=== PATIENT | female | born 1965 | race Caucasian/White ===

== ENCOUNTER 2022-06-30 02:00 | Day surgery (SDC) | payer BC, SELFPAY ==
[2022-06-18 09:03] VITALS: BMI 39.5
[2022-06-30 08:37] VITALS: BP 147/91; PULSE 98; RESP 18; TEMP 36.1; O2SAT 99; BMI 45.9
[2022-06-30] MEDS: LACTATED RINGERS 1,000 ML 150 ML IV CONT (08:46)
--- NOTE | 2022-06-30 09:19 | PM.HPGS ---
History of Present Illness History of Present Illness Consent: Risks, benefits, and alternatives have been discussed and questions answered. Patient agrees to proceed with procedure. Chief complaint: neoplasm screening Narrative: Kyung Wallace is a 56 year old female here for colonoscopy, 5 years ago had polyp Review of Systems Constitutional: Constitutional: Denies headache(s) and Denies weakness Eyes: Eyes: Denies blurry vision ENT: Reports Normal hearing present, Denies headache(s) and Denies neck pain Cardiovascular: Cardiovascular: Denies chest pain and Denies dyspnea Respiratory: Respiratory: Denies dyspnea Gastrointestinal: Gastrointestinal: Reports no additional gastrointestinal complaints Genitourinary: Genitourinary: Denies dysuria Musculoskeletal: Musculoskeletal: Denies neck pain Integumentary/Breasts: Skin/Breast: Denies dry skin Neurologic: Reports Normal hearing present, Denies headache(s) and Denies weakness Psychiatric: Psychiatric: Denies anxiety Endocrine: Endocrine: Denies change in body appearance Hematologic/Lymphatic: Hematologic/Lymphatic: Denies easy bleeding Allergic/Immunologic: Allergic/Immunologic: Denies urticaria PMFSH Past Medical History Medical History (Updated 06/30/22 @ 09:19 by Harman Garcias MD) Colon polyp Social History Social History Years smoked: 32 Smoking status: Current every day smoker Tobacco type: cigarettes Substance use type: does not use Living arrangements: with family Spiritual care concerns: No Meds Home Medications and Allergies Home Medications Medication Instructions Recorded Confirmed Type alprazolam 0.25 mg tablet 0.25 mg PO BID PRN Anxiety 06/18/22 06/18/22 History atenolol 50 mg tablet 50 mg PO DAILY 06/18/22 06/18/22 History escitalopram oxalate 20 mg tablet 20 mg PO DAILY 06/18/22 06/18/22 History hydrochlorothiazide 25 mg tablet 25 mg PO BID 06/18/22 06/18/22 History trazodone 50 mg tablet 50 mg PO HS 06/18/22 06/18/22 History venlafaxine 75 mg capsule,extended 75 mg PO DAILY 06/18/22 06/18/22 History release 24 hr Allergies Allergy/AdvReac Type Severity Reaction Status Date / Time Penicillins Allergy Other Verified 06/30/22 08:36 Vital Signs Vital Signs - 24 hr 06/30/22 08:37 Temperature 97 F L Pulse Rate 98 Respiratory Rate 18 Blood Pressure 147/91 H Pulse Oximetry 99 Oxygen Delivery Room Air Exam Const: General: comfortable and no acute distress HENMT: Face/Nose/Sinus: Normal nares present Eyes: General: appearance normal, both eyes and all related structures Neck: Neck: no JVD Resp: Auscultation: clear to auscultation bilaterally Cardio: Rate: regular rate Rhythm: regular rhythm GI: Inspection: non-distended GI Palp: Yes Soft to palpation Skin: General skin exam: normal color Neuro: General: gait normal Speech: normal speech Extrem: General: normal to inspection Psych: Mental Status: mental status grossly normal Assessment and Plan Assessment and plan (1) Colon polyp: Code(s): K63.5 - Polyp of colon Status: Acute Assessment and Plan: colonoscopy
--- NOTE | 2022-06-30 09:24 | WPDANESEPPF ---
Anes - Initial Pre Proc Eval Procedure: Operation Date: 06/30/22 09:45 Proposed Procedures p Screening Colonoscopy - Harman Garcias MD Date/Time: 06/30/22 09:24 Surgeon: Harman Garcias MD Pre Op Diagnosis: neoplasm screening Patient Data Age: 56 Gender: F Height: 1.78 m Weight: 145.2 kg Last Vital Signs Temp 97 F L 06/30/22 08:37 Pulse 98 06/30/22 08:37 Resp 18 06/30/22 08:37 BP 147/91 H 06/30/22 08:37 Pulse Ox 99 06/30/22 08:37 O2 Del Method Room Air 06/30/22 08:37 Allergies Allergy/AdvReac Type Severity Reaction Status Date / Time Penicillins Allergy Other Verified 06/30/22 08:36 Home Medications Medication Instructions Recorded Confirmed Type alprazolam 0.25 mg tablet 0.25 mg PO BID PRN Anxiety 06/18/22 06/18/22 History atenolol 50 mg tablet 50 mg PO DAILY 06/18/22 06/18/22 History escitalopram oxalate 20 mg tablet 20 mg PO DAILY 06/18/22 06/18/22 History hydrochlorothiazide 25 mg tablet 25 mg PO BID 06/18/22 06/18/22 History trazodone 50 mg tablet 50 mg PO HS 06/18/22 06/18/22 History venlafaxine 75 mg capsule,extended 75 mg PO DAILY 06/18/22 06/18/22 History release 24 hr Patient hx anesthesia problems: none Family hx anesthesia problems: none Results Review: All pre-operative results and documents have been reviewed as part of the pre-operative evaluation. [facility] Past Medical History Medical History (Updated 06/30/22 @ 09:19 by Harman Garcias MD) Colon polyp Social History Social History Years smoked: 32 Smoking status: Current every day smoker Tobacco type: cigarettes Substance use type: does not use Living arrangements: with family Spiritual care concerns: No Anes - Eval Final PreProcedure Day of Procedure 06/30/22 09:24 Patient weight: morbidly obese Heart: regular rate and rhythm Lungs: clear to auscultation Airway: Mallampati scale class II Neurological: alert and oriented Last oral intake: >/= 8 hours ASA classification: III Emergent: no Anesthetic plan: proceed Anesthesia type and monitoring: general GIVS and standard monitoring Results Review: All pre-operative results and documents have been reviewed as part of the pre-operative evaluation. Informed Consent: The patient's anesthetic plan and its attendant risks and benefits were discussed with the patient/family/POA. Questions were solicited and answers provided to the satisfaction of the patient/family/POA.
[2022-06-30 09:51] VITALS: BP 125/63; PULSE 79; RESP 25; O2SAT 97
[2022-06-30 10:01] VITALS: BP 117/58; PULSE 94; RESP 25; O2SAT 99
[2022-06-30 10:11] VITALS: BP 129/62; PULSE 80; RESP 20; O2SAT 99
== END 2022-06-30 10:21 | disposition home or self-care (01) ==
PROVIDERS: PCP Family Medicine; Visit Provider Internal Medicine Gastroenterology
PROC: 0DJD8ZZ Inspection of Lower Intestinal Tract, Via Natural or Artificial Opening Endoscopic (ICD-10-PCS; CPT 45378; principal; 2022-06-30 09:45)
DX: Z12.11 Encounter for screening for malignant neoplasm of colon (principal); D12.4 Benign neoplasm of descending colon; D12.3 Benign neoplasm of transverse colon; K64.8 Other hemorrhoids; F17.210 Nicotine dependence, cigarettes, uncomplicated; E66.01 Morbid (severe) obesity due to excess calories; Z68.42 Body mass index [BMI] 45.0-49.9, adult
CPT/HCPCS: 45385; 88305; J2704; J7120

== ENCOUNTER 2025-08-21 02:07 | Day surgery (SDC) | payer BC, SELFPAY ==
[2025-08-10 13:48] VITALS: BMI 37.3
--- OUTSIDE RECORDS SUMMARY | 2025-08-21 02:10 | XMS_ITS | Data Portability ---
Author Organization [place] - [employer], Main Office Address [address] [place] [address] Assessment Encounter Date Assessment Date Assessment LastModified by Organization Details LastModified Time 03/28/2025 03/28/2025 The patient has moderately severe primary osteoarthritis of the left knee joint as described. We talked about treatment options today in detail shot of cortisone more than a year ago gave her really good relief. She is not currently taking any nonsteroidal anti-inflammatory medication. We talked about this in detail today she would like to proceed with diclofenac 75 mg b.i.d. with food. She was given a prescription for this today. We also talked about gel shots versus cortisone cortisone worked well for her previously she would like to do that again today therefore under sterile conditions I injected the patient's left knee joint in the office with 4 cc of 0.5% bupivacaine and 20 mg of Kenalog. The patient tolerated the procedure well. The patient is currently working on weight loss with prescription medication seems to be giving her a good start on her weight loss program. This may help her knees correction. Her x-rays today do show significant degenerative change in the patellofemoral articulations and medial compartment of the left knee. We will manage this until Thursday when she may require total knee arthroplasty she is aware that she would need to lose a significant amount of weight and get the lymphedema under control. She voiced understanding and agrees with the above plan I will see her back as needed we can do this again in 3 months if necessary. If she decides she wants to try gel shots she will let us know and advanced. Not available 03/28/2025 11:22:45 04/04/2025 04/04/2025 The patient has what appears to be posttraumatic osteoarthritis and hypertrophic changes of the medial and lateral portions of both ankles. We talked about treatment options today in detail currently she is taking diclofenac she started taking this a week or 2 ago this seems to be helping with her bilateral ankle pain. We talked about physical therapy she declined she feels as though she has good strength her stability appears to be good as well. Unfortunately she does have some posttraumatic changes due to ligamentous injuries medially and laterally many years ago. She is aware that weight loss may help she is currently working on this. Keeping her strength and body mass index at ideal levels may help with her situation. She is going to continue with diclofenac 75 mg b.i.d. with food. If her symptoms become severe enough we could consider ankle injections for now she does not feel as though she needs those. She voiced understanding agrees above plan she will call for any further problems difficulties or questions. I will see her back as needed. Not available 04/04/2025 10:01:32 07/18/2025 07/18/2025 The patient has chronic moderately severe primary osteoarthritis left knee joint and moderately severe to severe degenerative changes in her left ankle. she has had chronic pain in her left ankle and her left knee joint but was doing okay until she fell 3 days ago at home. The patient's x-rays do not show any new findings today in the ankle or the knee. I do not detect any new fractures or new findings compared to previous x-rays done earlier this year. We talked about treatment options today in detail we are going to get her set up for physical therapy to work on range of motion and ambulation with her left knee and left ankle and gentle strengthening also. She has significant primary osteoarthritis and both of the knee and the ankle on the left lower extremity this was aggravated by her fall. We talked about other treatment options she wanted proceed with the cortisone left knee therefore under sterile conditions I injected the patient's left knee joint in the office today with 4 cc 0.5% bupivacaine and 20 mg of Kenalog. The patient tolerated the procedure well. We will get her a refill of diclofenac 75 mg b.i.d. with food. We will see how she does with therapy I will recheck her again in 6 weeks if necessary. She voiced understanding and agreed with the above plan she will call for any further problems difficulties or questions. I have also recommended she use a walker for balance and support until she feels like she can walk comfortably. Not available 07/18/2025 11:39:56 Plan of Treatment Reminders Order Date Submit Date Provider Last Modified By Organization Details Last Modified Time Details Appointments Any 5 2024 09:15A SUDEEP Rosas Not available Not available Not available Lab drug screen, urine 2024 [facility] (Lab), [address] [place], [address], 02/24/2025 17:11:12 lipid panel, serum [address] (Lab), [address] [place], [address], 01/05/2025 12:37:02 CMP, serum or plasma [address] (Lab), [address] [place], [address], 01/05/2025 12:37:03 CK (creatine kinase), total, serum [address] (Lab), [address] [place], [address], 01/05/2025 12:37:03 hemoglobi n A1C, fingersti ck 2024 025 [facility], [address] [place] [address], [address], 12/08/2024 12:08:04 Referral physical therapist referral - patient to schedule 2024 025 [facility], [address] [place], [address], 07/18/2025 13:12:43 physical therapist referral - patient to schedule 2024 [facility]25 [facility], [address] [facility], [place], [address], 07/18/2025 13:18:00 podiatris t referral - She has neuropath y , but also pes planus. and edema . Please eval and treat prn. I just increased her gabapenti n a little. Please call patient to schedule an appointme nt. Thank you. 2024 025 [email or web address] Nghia Golden DPM, [address] [facility], [address], [place], [address], 05/22/2025 08:42:45 gastroent erologist referral - Due for colonosco py. Please call patient to schedule an appointme nt. Thank you. 2024 025 [email or web address] James Reddy MD, [address] [facility], [facility] [address], [place], [address], 12/19/2024 09:53:02 Procedures injection /aspirati on joint/bur sa (PROC) 2024 025 [email or web address] In-Office Order, Internal Use Only DO Not Attach Compendium DO Not Attach Compendium, Do Not Delete/merge, [id number] 07/18/2025 11:24:42 injection /aspirati on joint/bur sa (PROC) 2024 025 In-Office Order, Internal Use Only DO Not Attach Compendium DO Not Attach Compendium, Do Not Delete/merge, [id number] 03/28/2025 10:24:01 Surgeries None recorded. Imaging XR, knee 2024 025 RENY Not available 07/18/2025 13:18:32 XR, ankle 2024 025 RENY Not available 07/18/2025 14:09:02 XR, ankle, 3 or more view 2024 025 [facility], [facility], [address], [place], [address], 04/04/2025 10:03:15 XR, knee 2024 025 [facility], [facility]4 [facility], [address], [place], [address], 03/28/2025 11:29:33 Medication Orders bupivacai ne HCl 0.5 % (5 mg/mL) injection solution [address]/Pharmacy #[id number], [address] [place], [address], 07/18/2025 11:40:13 Kenalog 10 mg/mL suspensio n for injection [address]/Pharmacy #[id number], [address] [place], [address], 07/18/2025 11:40:13 diclofena c sodium 75 mg tablet,de layed release [address]/Pharmacy #[id number], [address] [place], [address], 07/18/2025 11:40:13 bupivacai ne HCl 0.5 % (5 mg/mL) injection solution 2024 025 [id number], [address] [place], [address], 03/28/2025 11:29:33 Kenalog 10 mg/mL suspensio n for injection [address]/Pharmacy #[id number], [address] [place], [address], 03/28/2025 11:29:33 diclofena c sodium 75 mg tablet,de layed release 2024 025 [facility]/Pharmacy #[id number], [address], [place], [address], 03/28/2025 11:29:33 meclizine 12.5 mg tablet 2024 025 [facility]/Pharmacy #[id number], [address] [place], [address], 02/17/2025 10:36:49 Depo-Medr ol 80 mg/mL suspensio n for injection 2024 025 Not available 03/28/2025 10:18:46 prednison e 20 mg tablet 2024 025 [facility]/Pharmacy #[id number], [address] [place], [address], 03/28/2025 10:19:10 tramadol 50 mg tablet 2024 025 [email or web address] 00 [facility]/Pharmacy #[id number], [address] [place], [address], 02/17/2025 10:36:04 omeprazol e 20 mg capsule,d elayed release 2024 025 [facility]/Pharmacy #[id number], [address] [place], [address], 12/08/2024 11:45:44 sucralfat e 1 gram tablet 2024 025 [facility]/Pharmacy #[id number], [address] [place], [address], 03/28/2025 10:19:19 clonazepa m 0.5 mg tablet 2024 025 [facility]/Pharmacy #[id number], [address] [place], [address], 12/08/2024 11:50:16 epinephri ne 0.3 mg/0.3 mL injection , auto-inje ctor 2024 025 [email or web address] 00 [facility]/Pharmacy #[id number], [address], [place], [address], 12/08/2024 11:44:36 Ozempic 2 mg/dose (8 mg/3 mL) subcutane ous pen injector 2024 025 RENY [facility]/Pharmacy #[id number], [address], [place], [address], 12/08/2024 11:41:29 Patient TargetsNo targets recorded. Patient InstructionsNo instructions recorded. 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 Please call patient to schedule an appointment. Thank you. 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 and edema . Please eval and treat prn. I just increased her gabapentin a little. Please call patient to schedule an appointment. Thank you. Referring Physician: Alejandro Partida [facility], Encounter Date: 02/17/2025 Physical Therapist Referral for Pain of left knee joint patient to schedule Referring Physician: Hugo Murray, Orthopedic Surgery, Encounter Date: 07/18/2025 Physical Therapist Referral for Acute ankle pain patient to schedule Referring Physician: Hugo Murray, Orthopedic Surgery, Encounter Date: 07/18/2025 Results Created Date Observation Date Name Description Value Unit Range Abnormal Flag Note LastModifiedBy Organization Detail LastModifiedTime 12/09/1912/08/2024 hemog lobin A1C, finge rstic k HgbA1C 5.1 Not Available [facility]_[address], [address], 12/08/2024 11:51:27 07/18/2007/18/2025 XR KNEE 3V UNILA T [email or web address] [facility] [address] [place] [address] [phone] RADIO LOGY REPOR T ____ Patie nt Name: FÉLIX MAHMOOD L Date Of : [birth year] Date Of Study : 07/18 10:23 Ref. Physi gonzález: MARINA Peguero ____ Exami natio n: XR KNEE BOTH. Clini sona Indic ation : Fall 4 days ago, pain to left knee and left ankle , histo ry of surge ry to left ankle . Rivera rison : None. Techn ique: X-ray of both knee compl ete views . Findi ngs: Mild Reduc tion in the tibio femor al and brewer lofem oral joint space s are noted bilat erall y. Subch ondra l scler osis is noted . Osteo phyti c lippi ng of the bones aroun d the knee joint are noted . Promi nence of tibia l spine s is noted on both sides . Brewer lar polar osteo phyte s with mild reduc tion in later al brewer lofem oral joint space mild later al sublu xatio n of brewer lofem oral joint . Few loose jim s are seen in the left popli teal fossa . No evide nce of fract ure or dislo catio n was noted . Visua lized soft tissu es appea r amy l. Impre ssion : Osteo arthr itis of bilat eral knee joint s. Elect isabela rider Maureen d 07/18 12:15 Becky Lozano Not Available [facility] (Lab) [address] [facility], [place], [address], 07/18/2025 13:15:57 07/18/20 25 07/18/2025 XR ANKLE 3V+ UNILA T [email or web address] [facility] [address] [place] [address] [phone] RADIO LOGY REPOR T ____ Patie nt Name: FÉLIX STOCK TIMOTEO L Date Of : [birth year] Date Of Study : 07/18 10:23 Ref. Physi gonzález: MARINA Peguero ____ Exami natio n: XR ANKLE LEFT. Clini sona Indic ation : Fall 4 days ago, pain to left knee and left ankle , histo ry of left ankle surge ry. Rivera rison : None. Techn ique: X-ray left ankle AP and later al views . Findi ngs: Inter nal fixat ors are seen in the dista l shaft of fibul a. Visua lized bones appea rs reduc ed in densi ty with osteo arthr itic arguelles es at the tibio talar , subta lar and dista l tibio fibul ar synde smosi s. Plant ar calca lexie spur is noted . No obvio us evide nce of fract ure. Joint space appea rs amy l. Soft tissu e swell ing is seen aroun d the ankle joint . Impre ssion : 1. Mild osteo arthr itic arguelles es at the ankle joint . 2. Sugge sted MRI ankle for furth er evalu ation . Ebonie rider Maureen d 07/18 13:05 Piamp rony Lozano Not Available [facility] ([facility]) [address] [place], [address], 07/18/2025 14:06:39 03/28/20 25 XR, knee No observ ation record ed. no6 [facility]_[address], [address], [address], 03/28/2025 11:24:08 04/04/20 25 XR, ankle , 3 or more view No observ ation record ed. s_[address], [address], [address], 04/04/2025 10:03:14 07/18/20 25 07/18/2025 XR, knee No observ ation record ed. [address] [place], [address], 07/18/2025 13:35:07 07/18/20 25 07/18/2025 XR, ankle No observ ation record ed. [address] [place], [address], 07/18/2025 16:00:01 Result Notes None recorded. Problems Name Problem SNOMED Code Status Onset Date Resolution Date Notes Provider Name and Address Organization Details Recorded Time Cellulitis 083488313 Active Not Available [facility] 3 17:52:42 Seizure disorder 908198382 Active Not Available [facility] 3 17:52:42 Backache 936804210 Active Not Available [facility] 3 17:52:42 Anxiety state 182369372 Active Not Available [facility] 3 17:52:42 Edema 508011833 Active Not Available [employer] 3 17:52:42 Eruption 753082496 Active Not Available [facility] 3 17:52:42 Low back pain 418260098 Active Not Available [facility] 3 17:52:42 Chronic sciatica 038857314 Active Not Available [facility] 3 17:52:42 Knee pain Active Not Available [facility] 3 17:52:42 Contact dermatitis 17707472 Active Not Available [facility] 3 17:52:42 Lymphedema of lower extremity 589039862 Active Not Available [facility] 3 17:52:42 Anxiety 78902859 Active Not Available [facility] 3 17:52:42 Pain of hip region 05792602 Active Not Available [facility] 3 17:52:42 Essential hypertensi on 38619388 Active Not Available [facility] 3 17:52:42 Costal chondritis 46217817 Active Not Available [facility] 3 17:52:42 Sleep apnea 59931519 Active Not Available [facility] 3 17:52:42 Epilepsy 70819560 Active SUDEEP Watson [address] [facility], [address], [address] , [facility] 4 21:02:04 Mixed anxiety and depressive disorder 512722715 Active 2022 Not Available [facility] 3 17:52:42 Chronic low back pain 734148214 Active 2022 Not Available [facility] 3 17:52:42 Impaired fasting glycemia 435176883 Active 2022 Not Available [facility] 3 17:52:42 Maturity onset diabetes of the young, type 2 469592641 Active 2022 Not Available [facility] 3 17:52:42 Acute bronchitis with bronchospa sm 46796611 Active 2022 Not Available [facility] 3 17:52:42 Type 2 diabetes mellitus without complicati on 228330867 Active 2022 Not Available [facility] 3 17:52:42 Infestatio n by Sarcoptes scabiei micah hominis 830869197 Active 2022 Not Available [facility] 3 17:52:42 Morbid obesity 921035722 Active 2022 Not Available [facility] 3 17:52:42 Impaired glucose tolerance 8554435 Active 2022 Not Available [facility] 3 17:52:42 Pain in bilateral feet 6997631475048 9102 Active 2022 Not Available [facility] 3 17:52:42 Neuropathy 522431830 Active 2022 Not Available [facility] 3 17:52:42 Chronic sciatica 538251533 Active 2023 SUDEEP Watson [address], [address], [place], [address] , [employer] 4 11:53:19 Fracture of tooth 12852711 Active 2023 SUDEEP Watson [address], [address], [place], [address] , [employer] 4 11:55:09 Dysuria 40919679 Active 2023 SUDEEP Watson [address], [address], [place], [address] , [employer] 4 11:48:35 Pain of left knee joint 0444057951462 07 Active 2023 FREDRICK Barney, [employer] [facility] [employer] 4 14:06:08 Bilateral osteoarthr itis of knees 6946613628871 07 Active 2023 SUDEEP Hollis [address], [address], [place], [address] , [employer] 4 15:35:28 Adult health examinatio n Active 2023 SUDEEP Watson [address], [address], [place], [address] , [facility] [employer] [facility] [employer] [facility] 4 11:23:02 Hypokalemi a 73326156 Active 2023 SUDEEP Watson [address], [address], [place], [address] , [facility] [employer] [facility] 4 15:08:03 Pain of left shoulder joint 9660607484044 9109 Active 2023 Terrie Vi, [employer] null, [place] - [facility] [employer] [facility] 4 09:04:23 Closed fracture of greater tuberosity of proximal left humerus 8410397143514 9100 Active 2023 SUDEEP Hollis [address], [address], [place], [address] , [facility] [employer] [facility] 4 09:28:35 Contusion of right knee 1130427750661 9104 Active 2023 SUDEEP Hollis [address], [address], [place], [address] , [facility] [employer] [facility] [employer] [facility] 4 09:28:49 Closed fracture of anatomical neck of proximal left humerus 6527660305458 9108 Active 2023 SUDEEP Hollis [address], [address], [place], [address] , [facility] [employer] [facility] 4 11:51:03 Migraine 35647161 Active 2023 SUDEEP Watson [address], [address], [place], [address] , [facility] [employer] [facility] [employer] [facility] 4 11:37:44 Nausea 021213024 Active 2024 SUDEEP Watson [address], [address], [place], [address] , [facility] [employer] [facility] [employer] [facility] 5 15:29:06 Gastritis 4712658 Active 2024 SUDEEP Watson [address], [address], [place], [address] , [place] [facility] 5 15:29:28 Allergic reaction 267251460 Active 2024 SUDEEP Watson [address], [address], [place], [address] , [place] [facility] 5 11:43:19 Screening for malignant neoplasm of colon Active 2024 SUDEEP Watson [address], [address], [place], [address] , [place] [facility] 5 11:46:43 Hyperlipid emia 97682013 Active 2024 SUDEEP Watson [address], [address], [place], [address] , [place] [facility] 5 11:53:12 Vertigo 716535835 Active 2024 SUDEEP Watson [address], [address], [place], [address] , [place] [facility] 5 10:35:47 Ankle pain 817391753 Active 2024 Nataliya goss, [place] [facility] 5 11:11:24 Ankle pain 352905885 Active 2024 JR Contreras, [place] [facility] 5 09:08:19 Primary osteoarthr itis of ankle 690400943 Active 2024 SUDEEP Hollis [address], [address], [place], [address] , [place] [facility] 5 11:29:24 Acute ankle pain 2149988098661 5 Active 2024 SUDEEP Hollis [address], [address], [place], [address] , [place] [facility] 5 11:29:49 Problem Notes None recorded. Procedures Surgical History Date Name Laterality Status Provider Name and Address Organization Details Recorded Time Nebulizer Treatment completed Jarek Paniagua MD [address], [facility] [address], [place], [address], [facility] [employer] [facility] 01/07/2023 06:25:57 procedure on lower leg completed Terrie Lebron [facility] [employer] [facility] 01/08/2024 14:05:02 Hernia Repair completed Terrie Lebron [facility] 01/08/2024 14:05:18 Imaging Results None recorded. Procedure Notes None recorded. Medical Equipment None Reported. Allergies Allergen ID Allergen Name Allergen Category Reaction Reaction Severity Criticality Documentation Date Start Date Code Code System Note Provider Name and Address Organization Details Recorded Time 15897 Product containin g penicilli n (product) medicatio n hives Not available Not available 11/26/2022 14729 8001 SNOMED Not Available [facility] 3 06:51:21 Medications Name Sig Start Date Stop Date Status Note LastModified by Organization Details LastModified Time Prescript ion - Prior Authoriza tion Request active Not Available Not Available Not Available cyclobenz aprine 10 mg tablet TAKE 1 TABLET THREE TIMES A DAY NEEDED active Not Available Not Available No t Available lamotrigi ne 150 mg tablet TAKE 1 TABLET TWICE A DAY 05/17 completed Not Available Not Available Not Available venlafaxi ne ER 37.5 mg capsule,e xtended release 24 hr TAKE 1 CAPSULE BY MOUTH EVERY DAY active Not Available Not Available No t Available venlafaxi ne ER 75 mg capsule,e xtended release 24 hr Take 1 capsule every day by oral route. 01/06 completed Not Available Not Available Not Available venlafaxi ne 75 mg tablet TAKE 1 TABLET TWICE A DAY 01/19 completed Not Available Not Available Not Available trazodone 50 mg tablet 12/09 completed Not Available Not Available Not Available azithromy renate 250 mg tablet TAKE 2 TABLETS BY MOUTH TODAY, THEN TAKE 1 TABLET DAILY FOR 4 DAYS 05/27 completed Not Available Not Available Not Available sumatript an 100 mg tablet Take 1 tablet every day by oral route as needed for 9 days. 02/17 completed Not Available Not Available Not Available hydrocodo ne 5 mg-acetam inophen 325 mg tablet 10/18 completed Not Available Not Available Not Available sucralfat e 1 gram tablet TAKE 1 TABLET 4X A DAY BY MOUTH BEFORE MEAL(S) FOR 30 DAYS. 03/28 completed Not Available Not Available Not Available ondansetr on HCl 4 mg tablet Take 2 tablets every 8 hours by oral route as needed for 2 days. active Not Available Not Available No t Available bupivacai ne HCl 0.5 % (5 mg/mL) injection solution Take 20 mg by injectio n route. 2024 active Not Available Not Available Not Avai lable prednison e 20 mg tablet PLEASE SEE ATTACHED FOR DETAILED DIRECTIO NS 03/28 completed Not Available Not Available Not Available clonazepa m 0.5 mg tablet TAKE 1 TABLET BY MOUTH TWICE A DAY NEEDED active Not Available Not Available No t Available atenolol 25 mg tablet Take 1 tablet every day by oral route. 2013 active Not Available Not Available Not Avai lable permethri n 5 % topical cream APPLY 1 APPLICAT ION FROM HEAD TO SOLES OF FEET, LEAVE FOR 8-14 HRS THEN THROUGHL Y WASH OFF 01/07 completed Not Available Not Available Not Available clindamyc in HCl 150 mg capsule TAKE 1 CAPSULE BY MOUTH EVERY 6 HOURS FOR 10 DAYS 01/06 completed Not Available Not Available Not Available topiramat e 25 mg tablet active Not Available Not Available Not Available meclizine 12.5 mg tablet TAKE 1 TABLET BY MOUTH THREE TIMES A DAY NEEDED FOR DIZZINES S active Not Available Not Available No t Available ciproflox acin 500 mg tablet TAKE 1 TABLET BY MOUTH EVERY 12 HOURS UNTIL GONE 01/06 completed Not Available Not Available Not Available sulfameth oxazole 800 mg-trimet hoprim 160 mg tablet Take 1 tablet every 12 hours by oral route. 10/18 completed Not Available Not Available Not Available tramadol 50 mg tablet TAKE 1 TABLET BY MOUTH EVERY 8 HOURS NEEDED FOR PAIN active Not Available Not Available No t Available triamcino lone acetonide 0.1 % topical cream APPLY 1 APPLICAT ION TOPICALL Y TWICE A DAY FOR 30 DAYS 01/07 completed Not Available Not Available Not Available Depo-Medr ol 80 mg/mL suspensio n for injection Take 1 mL by injectio n route. 03/28 completed Not Available Not Available Not Available oxycodone -acetamin ophen 5 mg-325 mg tablet Take 1-2 TABLET EVERY4- 6 HOURS by oral route. active Not Available Not Available No t Available alprazola m 0.5 mg tablet TAKE 1 TABLET TWICE TIMES A DAY NEEDED. MUST LAST AT LEAST 30 DAYS. ONLY TAKE NEEDED. active Not Available Not Available No t Available alprazola m 0.25 mg tablet TAKE ONE TABLET BY MOUTH 2 TIMES DAILY NEEDED. 06/26 completed Not Available Not Available Not Available trazodone 100 mg tablet active Not Available Not Available Not Available Kenalog 10 mg/mL suspensio n for injection Take 20 mg by injectio n route. 2024 active [facility]: [id number] 01-15 Not Available Not Available Not Available benzonata te 100 mg capsule 1-2 po every 8 hours 10/18 completed Not Available Not Available Not Available doxycycli ne monohydra te 100 mg capsule active Not Available Not Available Not Available venlafaxi ne 37.5 mg tablet TAKE 1 CAPSULE EVERY DAY BY ORAL ROUTE. 01/07 completed Not Available Not Available Not Available nystatin 100,000 unit/gram topical cream APPLY TO AFFECTED AREA TWICE DAILY UNTIL FOLLOW UP. 12/09 completed Not Available Not Available Not Available omeprazol e 20 mg capsule,d elayed release TAKE 1 CAPSULE BY MOUTH TWICE A DAY BEFORE MEALS FOR UPSET STOMACH active Not Available Not Available No t Available diclofena c sodium 75 mg tablet,de layed release Take 1 tablet twice a day by oral route. 2024 active Not Available Not Available Not Avai lable hydrochlo rothiazid e 25 mg tablet TAKE 1 TABLET TWICE A DAY active Not Available Not Available No t Available zolpidem 5 mg tablet Take 1 tablet every day by oral route. 01/19 completed Not Available Not Available Not Available gabapenti n 100 mg capsule TAKE 1 CAPSULE THREE TIMES A DAY. 2024 active Not Available Not Available Not Avai lable epinephri ne 0.3 mg/0.3 mL injection , auto-inje ctor TAKE 1 AUTO BY INJECTIO N ROUTE FOR 1 DAY. active Not Available Not Available No t Available ibuprofen 600 mg tablet 11/11 completed Not Available Not Available Not Available cefuroxim e axetil 500 mg tablet 10/18 completed Not Available Not Available Not Available methylpre dnisolone 4 mg tablets in a dose pack Take by oral routeas directed active Not Available Not Available No t Available albuterol sulfate HFA 90 mcg/actua tion aerosol inhaler Inhale 2 puffs every 4 hours by inhalati on route as needed. 01/07 completed Not Available Not Available Not Available ondansetr on 4 mg disintegr ating tablet DISSOLVE 1 TABLET ON TONGUE 3 TIMES A DAY NEEDED FOR NAUSEA active Not Available Not Available No t Available atenolol 50 mg tablet TAKE 1 TABLET DAILY active Not Available Not Available No t Available diazepam 5 mg tablet 11/11 completed Not Available Not Available Not Available escitalop erika 10 mg tablet TAKE 1 TABLET BY MOUTH EVERY DAY (WITH A 20MG TABLET FOR A TOTAL OF 30 MG) active Not Available Not Available No t Available escitalop erika 20 mg tablet TAKE 1 TABLET BY MOUTH EVERY DAY active Not Available Not Available No t Available cyclobenz aprine 5 mg tablet Take 1 tablet 3 times a day by oral route as needed. 05/17 completed Not Available Not Available Not Available Klor-Con M20 mEq tablet,ex tended release active Not Available Not Available Not Available Marcaine (PF) 0.5 % (5 mg/mL) injection solution Take 20 mg by injectio n route. 03/28 completed Not Available Not Available Not Available topiramat e 50 mg tablet Take 1 tablet twice a day by oral route. 02/17 completed Not Available Not Available Not Available metformin ER 500 mg tablet,ex tended release 24hr (osmotic) Take 1 tablet every day by oral route. 03/26 completed Not Available Not Available Not Available nitrofura ntoin monohydra te/macroc rystals 100 mg capsule 06/02 completed Not Available Not Available Not Available pregabali n 100 mg capsule Take 1 capsule 3 times a day by oral route. 01/07 completed Not Available Not Available Not Available metformin ER 500 mg 24 hr tablet,ex tended release (gastric retention ) 01/06 completed Not Available Not Available Not Available Abilify 2 mg tablet Take 1 tablet every day by oral route. 03/29 completed Not Available Not Available Not Available diclofena c 1 % topical gel 01/07 completed Not Available Not Available Not Available potassium chloride ER 20 mEq tablet,ex tended release Take 1 tablet every day by oral route in the morning for 90 days. 2024 active Not Available Not Available Not Avai lable Anoro Ellipta 62.5 mcg-25 mcg/actua tion powder for inhalatio n 12/09 completed Not Available Not Available Not Available Ozempic 1 mg/dose (2 mg/1.5 mL) subcutane ous pen injector active Not Available Not Available Not Available Ozempic 1 mg/dose (4 mg/3 mL) subcutane ous pen injector INJECT 1 MG SUBCUTAN EOUSLY EVERY WEEK 09/09 completed Not Available Not Available Not Available Ozempic 2 mg/dose (8 mg/3 mL) subcutane ous pen injector INJECT 2MG UNDER THE SKIN ONCE WEEKLY active Not Available Not Available No t Available Ozempic 0.25 mg or 0.5 mg (2 mg/3 mL) subcutane ous pen injector INJECT 0.5 MG SUBCUTAN EOUSLY EVERY WEEK 01/06 completed dose increase Not Available Not Available Not Available Vitals Date Recorded Body height Body mass index (BMI) Body weight Body temperature Heart rate Oxygen saturation Systolic And Diastolic Provider Name and Address Organization Details Last Updated DateTime 5 177.8 cm 41.2 kg/m2 469356. 09 g 96.6 [degF] 68 /min 95 % 102/80 mm[Hg] Joseline Kennedy [facility] [employer] 5 11:15:49 Date Recorded Body height Body mass index (BMI) Body weight Body temperature Heart rate Oxygen saturation Systolic And Diastolic Provider Name and Address Organization Details Last Updated DateTime 5 177.8 cm 38.3 kg/m2 588457. 16 g 97 [degF] 82 /min 98 % 118/84 mm[Hg] Brenda Craft [facility] [employer] [facility] 5 09:53:22 Date Recorded Body height Body mass index (BMI) Body weight Provider Name and Address Organization Details Last Updated DateTime 03/28/2025 177.8 cm 38.3 kg/m2 518005.16 g Terrie Lebron [facility] [employer] [facility] 03/28/2025 10:18:15 Date Recorded Body height Body mass index (BMI) Body weight Pain severity - 0-10 verbal numeric rating [Score] - Reported Provider Name and Address Organization Details Last Updated DateTime 04/04/2025 177.8 cm 37.3 kg/m2 877728.02 g Ilene Kennedy [facility] [employer] [facility] 04/04/2025 09:07:43 Date Recorded Body height Body mass index (BMI) Body weight Provider Name and Address Organization Details Last Updated DateTime 07/18/2025 177.8 cm 41.6 kg/m2 189725.79 g Terrie Lebron [facility] [employer] [facility] 07/18/2025 10:50:36 Social History Question Answer Notes LastModified by Organizat ion Details LastModified Time Tobacco Smoking Status Current Every Day Smoker [facility] [employer] [facility] 01/08/2024 14:04:42 What Was The Date Of Your Most Recent Tobacco Screening? 07/18/2025 Information not available 07/18/2025 How Much Tobacco Do You Smoke? 0.5 PPD Information not available 01/08/2024 How Many Years Have You Smoked Tobacco? 30 Information not available 01/08/2024 Sex: Unknown Functional Status Question Answer Note LastModified by Organizat ion Details LastModified Time What is your level of alcohol consumption? Occasional Information not available 01/08/2024 Mental Status None recorded. Family History Relationship Description Onset Age of this Age Resolved Age Notes LastModified by Organization Details LastModified Time Paternal Grandfather Heart disease Not available 2023 14:03:39 Mother Hypertensive disorder Not available 2023 14:03:57 Mother Diabetes mellitus Not available 2023 14:04:10 Father Alzheimer's disease [email or web address] Not available 06/29 10:48:13 Sister Heart disease Not available 07/01/ 2025 10:19:56 Sister Cerebrovascu lar accident Not available 09/2024 10:20:12 Sister Kidney disease Not available 2024 10:20:25 Medical History Condition Response ARTHRITIS Y DIABETES, TYPE Y Gynecological HistoryNo gynecological history recorded. Obstetrics History GPAL:G 0 P 0 0 0 0 Immunizations Vaccine Type Date Status Note Provider Nam e and Address Organization Details Recorded Time Influenza, split virus, trivalent, PF 07/08/2024 completed SUDEEP aWtson [address], [place], [address], [facility] [employer] 08/01/2024 09:50:27 Past Encounters Encounter ID Performer Location Encounter Start Date Encounter Closed Date Diagnosis/Indication Diagnosis SNOMED-CT Code Diagnosis ICD10 Code Diagnosis IMO Codes Diagnosis Note [id number] Jarek Paniagua MD [facility] Dee j[address] [place] [address] 12/05/2020 00:00:00 12/06/2020 06:37:21 [id number] Jarek Paniagua MD [facility] Dee jenkins [facility] [place] [address] 07/22/2021 00:00:00 07/23/2021 06:22:19 [id number] Jarek Paniagua MD [facility] Dee jenkins [facility] [place] [address] 04/23/2022 00:00:00 04/23/2022 21:23:33 [id number] Jarek Paniagua MD [facility] Dee jenkins [facility] [place] [address] 12/09/2022 09:35:42 12/09/2022 10:09:18 Mixed anxiety and depressive disorder 967821594 F41.8 Chronic low back pain 27 0841844 M54.50 Impaired f asting glycemia 881218736 R73.01 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 Watch carbs in diet and weight loss recommende jude. Pt would benefit from [id number] recheck A1C in 3 months. [id number] Jarek Paniagua MD [facility] Dee jenkins [address] [place] [address] [place] [address] 01/06/2023 14:58:24 01/06/2023 16:15:26 Acute bronchitis with bronchospasm 28226497 J20.9 Neb Rx given x 1 [id number] Jarek Paniagua MD [facility] Dee jenkins [address] [place] [address] [place] [address] 03/26/2023 11:24:12 03/26/2023 11:50:31 Type 2 diabetes mellitus without complication 141260175 E11.9 A1C is 7.1% Will start ozempic will f/u in 3 months. Infestatio n by Sarcoptes scabiei micah hominis 643789777 B86 Morbid obesity 209184925 E66.01 Hopefully will lose weight with ozempic. [id number] Jarek Paniagua MD [facility] Dee llbrant [address] [place] [address] [place] [address] 05/27/2023 16:30:38 05/27/2023 17:03:59 Pain in bilateral feet 9769502063 3312985 M79.671 Neuropathy 243560146 G62 .9 [id number] Jarek Paniagua MD [facility] Dee llbrant [address] [place] [address] [place] [address] 06/26/2023 11:26:58 06/26/2023 12:02:55 Type 2 diabetes mellitus without complication 878628303 E11.9 A1C is 6.5% Will increase the ozempic to 1 mg weekly for added weight loss benefit and to lower A1C even more. Anxiety 56690437 F41.9 Will increase the alprazolam to 0.5 mg to use as needed. [id number] Jarek Paniagua MD [facility] Dee jenkins [address] [place] [address] [place] [address] 10/08/2023 11:20:35 10/08/2023 12:02:04 Type 2 diabetes mellitus without complication 233845092 E11.9 Anxiety 92261630 F41.9 Chronic low back pain 27 8807979 M54.50 Chronic sciatica 7761571 01 M54.30 Essential hypertension 92450343 I10 Neuropathy 064829904 G62 .9 Fracture of tooth 248289 09 S02.5XXA front right bottom Seizure disorder 4089112 02 G40.214 [id number] Cirilo Brewer MD [facility] [address] [place] [address] 01/07/2024 11:17:57 01/07/2024 11:48:58 Type 2 diabetes mellitus without complication 379901940 E11.9 Anxiety 20243902 F41.9 Bilateral osteoarthritis of knees 2009932297 12283 M17.0 Chronic low back pain 27 2256922 M54.50 Chronic sciatica 6526912 01 M54.30 Costal chondritis 057438 04 M94.0 Essential hypertension 13095138 I10 Morbid obesity 127458376 E66.01 Neuropathy 772121152 G62 .9 Seizure disorder 1087955 02 G40.909 Sleep apnea 53462736 G47 .30 [id number] Juanito Osei MD [facility] [address] [place] [address] 01/08/2024 13:42:41 01/08/2024 14:31:47 Pain of left knee joint 7993867147 06905 M25.562 Bilateral osteoarthritis of knees 5692252951 88718 M17.0 [id number] Cirilo Brewer MD [facility] [address] [place] [address] 04/07/2024 09:59:37 04/07/2024 10:50:04 Contact dermatitis 92028074 L25.9 Type 2 lillie betes mellitus without complication 633366329 E11.9 Adult heal th examination 251596386 Z00.00 [id number] Cir[facility] [address] [facility] [place] [address] 05/09/2024 14:49:34 05/09/2024 15:21:13 Hypokalemia 66143465 E87.6 Anxiety 94626642 F41.9 Bilateral osteoarthritis of knees 4339845620 22446 M17.0 Chronic sciatica 7282400 01 M54.30 Essential hypertension 91900948 I10 Low back pain 002873720 M54.50 Mixed anxi ety and depressive disorder 953949942 F41.8 Type 2 lillie betes mellitus without complication 392158182 E11.9 Sleep apnea 55530696 G47 .30 [id number] Juanito Osei MD [address] [address] 05/10/2024 08:54:37 05/10/2024 09:38:37 Pain of left shoulder joint 5093991493 7363299 M25.512 Closed fra cture of greater tuberosity of proximal left humerus 5687890900 3317764 S42.255A Contusion of right knee 0956664121 2892891 S80.01XA [id number] Juanito Osei MD [address] [address] 05/17/2024 10:20:55 05/17/2024 11:21:30 Closed fracture of greater tuberosity of proximal left humerus 0465274033 2154160 S42.255D Contusion of right knee 2655010225 6911738 S80.01XD Pain of le ft shoulder joint 8635027265 4444310 M25.512 Closed fra cture of anatomical neck of proximal left humerus 9547548080 6009539 S42.292D [id number] Juanito Osei MD [address] [address] 05/23/2024 10:44:05 05/23/2024 11:17:16 Closed fracture of greater tuberosity of proximal left humerus 5379942590 2107860 S42.255D [id number] Cirilo Brewer MD [facility] [address] [facility] [place] [address] 06/02/2024 12:11:28 06/02/2024 12:32:14 Hypokalemia 72189835 E87.6 Anxiety 84593578 F41.9 Bilateral osteoarthritis of knees 0443376630 10913 M17.0 Chronic sciatica 9116442 01 M54.30 Essential hypertension 15695189 I10 Mixed anxi ety and depressive disorder 484098756 F41.8 Neuropathy 400368233 G62 .9 Pain of le ft shoulder joint 3863397930 3705051 M25.512 Seizure disorder 9175711 02 G40.909 Type 2 lillie betes mellitus without complication 106274259 E11.9 [id number] Juanito Osei MD [address], [address] [address] 06/06/2024 10:45:57 06/06/2024 11:21:08 Closed fracture of anatomical neck of proximal left humerus 1007357000 1120702 S42.292D Closed fra cture of greater tuberosity of proximal left humerus 2057673946 7815941 S42.255D Pain of le ft shoulder joint 7181756993 1901480 M25.678 [id number] Juanito Osei MD [facility] [address] [facility] [address] [place] [address] 06/29/2024 10:46:27 06/29/2024 11:07:23 Closed fracture of anatomical neck of proximal left humerus 7323232187 9664386 S42.292D [id number] Cirilo Brewer MD [facility] Dee jenkins [address] [place] [address] 07/08/2024 11:03:00 07/08/2024 11:31:11 Administration of influenza vaccine 69077993 Z23 Type 2 lillie betes mellitus without complication 594940925 E11.9 Anxiety 03843201 F41.9 Bilateral osteoarthritis of knees 2206471770 50542 M17.0 Chronic low back pain 27 3846537 M54.50 Essential hypertension 29821355 I10 Low back pain 489931389 M54.50 Neuropathy 458539403 G62 .9 Seizure disorder 8986374 02 G40.909 Sleep apnea 11457101 G47 .30 [id number] Cirilo Brewer MD [address] [address] 09/09/2024 10:56:36 09/09/2024 11:41:38 Anxiety 24475096 F41.9 Migraine 23834865 G43.90 9 Bilateral osteoarthritis of knees 1292337253 47759 M17.0 Chronic sciatica 3919795 01 M54.30 Chronic low back pain 27 3884012 M54.50 Essential hypertension 92477081 I10 Hypokalemia 82205323 E87 .6 Mixed anxi ety and depressive disorder 520949163 F41.8 Neuropathy 787527773 G62 .9 Sleep apnea 50454400 G47 .30 Type 2 lillie betes mellitus without complication 589940009 E11.9 [id number] Cirilo Brewer MD [address] [address] 12/08/2024 11:05:15 12/08/2024 12:02:16 Type 2 diabetes mellitus without complication 872272827 E11.9 Allergic reaction 195768 005 T78.40XA Gastritis 9871902 K29.70 Screening for malignant neoplasm of colon 933812326 Z12.11 Anxiety 74696958 F41.9 Essential hypertension 33488217 I10 Hyperlipidemia 74643272 E78.5 Bilateral osteoarthritis of knees 5734973027 00805 M17.0 Chronic low back pain 27 4017354 M54.50 [id number] Cirilo Brewer MD [address] [address] 02/17/2025 09:43:09 02/17/2025 10:47:26 Pain in bilateral feet 5654875328 7464125 M79.671 Long-term current use of opiate analgesic drug 3127082101 50570 Z79.891 Vertigo 972698457 R42 41920 [id number] Juanito Osei MD [address], [address] [address] 03/28/2025 10:01:44 03/28/2025 10:55:47 Pain of left knee joint 4835268816 27401 M25.562 Bilateral osteoarthritis of knees 6311910852 07781 M17.0 [id number] Juanito Osei MD [facility]_[address], [address] [place] [address] 04/04/2025 09:03:30 04/04/2025 09:46:21 Ankle pain 535217316 M25.571 M25.572 68840738 [id number] Juanito Osei MD [facility] [place] [address] 07/18/2025 10:43:31 07/18/2025 13:05:12 Pain of left knee joint 9444114496 54385 M25.562 Bilateral osteoarthritis of knees 3997550838 90813 M17.0 Ankle pain 759307659 M25 .571 M25.572 00914046 Primary osteoarthritis of ankle 221488297 M19.071 M19.072 51509444 Acute ankle pain 5402993 011 9105 M25.572 71937236 Health Concerns Section Related Observation LastModified by Organization Detai ls LastModified Time None Recorded Concern Status LastModified by Organization Details LastModified Time None Recorded Advance Directives Directive None Recorded Payers Insurance Date Sequence Insurance Name Policy Number Policy Herron Covered Member ID Herron Member ID Guarantor Name 07/30/2025 1 [employer] [id number] Delmar Wallace [id number] Notes Date Note Type Note Provider Name and Address Organization Details Recorded Time 12/08/2024 text/html ROS as noted in the HPI left shoulder is doing better , can raise to shoulder level . SUDEEP Watson [address], [place], [address], [employer] 12/17/2024 11:20:55 02/17/2025 text/html ROS as noted in the HPI 2 weeks , sharp shooting pains below knees in to both feet . SUDEEP Watson [address], [place], [address], [employer] 02/21/2025 15:29:48 03/28/2025 text/html The patient returns I have not seen her for about a year and 3 months. She had left knee pain last time due to moderately severe primary osteoarthritis. Most of the osteoarthritis is noted to be in the patellofemoral articulation which is more advanced she does have moderately severe narrowing in the medial compartment and irregularity of the lateral compartment joint surfaces as well. A shot of cortisone back then plus diclofenac 75 mg b.i.d. gave her excellent relief she states her pain has only returned recently. She denies any new symptoms no new trauma or injury. She has aching pain about a 9 on a scale of 1-10. States it limits her daily activities. Occasionally her knee will get a little puffy and swollen. She tries activity modification without significant relief. She does have significant lymphedema both lower extremities left worse than right. She states this varies with the daily activity the time a day and whether or not she has used her compression sleeves. She reports crepitation aching pain mostly around the anterior knee worse with activity somewhat relieved by rest. She has start-up pain and night pain. She comes in today for further evaluation treatment of her left knee pain as described. The patient has previous x-rays were reviewed with her in detail today we are getting new x-rays as her old x-rays are more than a year old. New past medical history sheet was reviewed and signed on the intake sheet of today's date drug allergies current medications family social history previous surgical history 10 point review of systems was reviewed and discussed in detail today with the patient. The patient is currently on weight loss medication and has started to lose some weight. Currently 5 ft 10 in tall 267 lb BMI is 38.3. SUDEEP Hollis [address] [facility], [facility] [address], [place], [address], [employer] 03/28/2025 11:25:25 04/04/2025 text/html the patient returns with chronic issues with both ankles. She states for many years she has had some on and off pain and discomfort. She does have what appears to be a deformity of the right ankle. She states she has had an open reduction internal fixation previously of the left ankle. But has broken both of them at some point. She did not require any surgical intervention on the right. She does have significant lymphedema both lower extremities left a little worse than right. She states sometimes the swelling is worse than others. He has aching pain in both ankles about a 4 on a scale of 1-10 certain motions will cause some twinges of pain some days are better than others. She has trouble standing or walking for long periods. She does take diclofenac which she recently started taking this has helped somewhat. She was taking this for her knee due to moderate primary osteoarthritis. This has started to help the ankle is a bit she still wanted to have an evaluation because she is concerned about what appears to be a deformity of the right ankle. Denies any weakness no recent trauma or injury. SUDEEP Hollis [address] [facility], [facility] [address], [place], [address], [place] [facility] 04/04/2025 10:04:28 07/18/2025 text/html The patient returns with left knee and left ankle pain. I have seen her for these issues previously. March 28 of this year we did a shot of cortisone in the left knee which gave her great relief. She also takes diclofenac chronically 75 mg b.i.d. due the fact that she has significant degenerative changes in both ankles. She has had previous surgical intervention on the left with hardware present with a lateral plate. She states 3 days ago she was at home when she stumbled while she was starting to have a seizure she fell forward and landed on the floor. Since that time she has had more left knee pain and left ankle pain. Her previous knee x-rays do show moderately severe narrowing in the medial compartment with only a couple of mm joint space remaining small marginal osteophytes are noted off the medial joint line. The patellofemoral articulation shows lateral patellar tilt and lateral subluxation with large marginal osteophytes off the lateral edge of the patella this is present in both knees. Right knee does not really bother her today. She has an appearance of separation of some of the lateral body of the patella were marginal osteophytes have broken away or from the main body. Previous ankle x-rays show significant narrowing and hypertrophic and sclerotic changes throughout the ankle joint. She states right now she is having a hard time standing or walking on the left knee and left ankle because of significant discomfort. She is able to do a straight leg raise and go through the arc of motion has more tenderness over the lateral portion of the left knee and medial portion of the left ankle. She comes in today after her fall requesting new evaluation and possible treatment. We will get new x-rays of each today. SUDEEP Hollis [address] [facility], [facility] [address], [place], [address], [place] [facility] [employer] 07/18/2025 11:40:07 OBGyn Episode No OBEpisode recorded.
--- OUTSIDE RECORDS SUMMARY | 2025-08-21 02:10 | XMS_ITS | Continuity of Care Document ---
Author Organization [place] [facility], [facility] Address [address] [facility], [address] [place] [address] Assessment Encounter Date Assessment Date Assessment LastModified by Organization Details LastModified Time 07/18/2025 07/18/2025 The patient has chronic moderately [...] Not available Not available Not available Lab None recorded. Referral physical therapist referral - patient to schedule 2024 [facility], [address] [place], [address], 07/18/2025 13:12:43 physical therapist referral - patient to schedule 2024 [facility], [address] [place], [address], 07/18/2025 13:18:00 Procedures injection /aspirati on joint/bur sa (PROC) 2024 [email or web address] In-Office Order, Internal Use Only DO Not Attach Compendium DO Not Attach Compendium, Do Not Delete/merge, [id number] 07/18/2025 11:24:42 Surgeries None recorded. Imaging XR, knee 2024 RENY Not available 07/18/2025 13:18:32 XR, ankle 2024 RENY Not available 07/18/2025 14:09:02 Medication Orders bupivacai ne HCl 0.5 % (5 mg/mL) injection solution 2024 [id number], [address] , [place], [address], 07/18/2025 11:40:13 Kenalog 10 mg/mL suspensio n for injection 2024 025 [id number], [address], [place], [address], 07/18/2025 11:40:13 diclofena c sodium 75 mg tablet,de layed release 2024 025 [id number], [address] , [place], [address], 07/18/2025 11:40:13 Patient TargetsNo targets recorded. Patient InstructionsNo instructions recorded. Reason for Referral Physical Therapist Referral for Pain of left knee joint patient to schedule Referring Physician: Hugo Murray, Orthopedic Surgery, Encounter Date: 07/18/2025 Physical Therapist Referral for Acute ankle pain patient to schedule Referring Physician: Hugo Murray, Orthopedic Surgery, Encounter Date: 07/18/2025 Results Created Date Observation Date Name Description Value Unit Range Abnormal Flag Note LastModifiedBy Organization Detail LastModifiedTime 07/18/2007/18/2025 XR KNEE 3V UNILA T [id number] [facility] [address] [place] [address] [phone] RADIO LOGY REPOR T ____ Patie nt [...] bilat eral knee joint s. Elect isabela allleann Maureen d 07/18 12:15 Becky Lozano Not Available [facility] (Lab) [address] [place], [address], 07/18/2025 13:15:57 07/18/20 25 07/18/2025 XR ANKLE 3V+ UNILA T [email or web address] [facility] [address] [place] [address] [phone] RADIO LOGY REPOR T ____ Patie nt Name: FÉLIX STOCK TIMOTEO Scott Date Of : 89 Date Of Study : 07/18 10:23 Ref. Physi gonzález: AMRINA Peguero ____ Exami natio n: XR ANKLE [...] ankle for furth er evalu ation . Elect isabela adry Maureen d 07/18 13:05 Piamp rony Lozano Not Available [facility] (Lab) [address] [place], [address], 07/18/2025 14:06:39 07/18/20 25 07/18/2025 XR, knee No observ ation record ed. [address] [place], [address], 07/18/2025 13:35:07 07/18/20 25 07/18/2025 XR, ankle No observ ation record ed. [address] [place], [address], 07/18/2025 16:00:01 Result Notes None recorded. Problems Name Problem SNOMED Code Status Onset Date Resolution Date Notes Provider Name and Address Organization Details Recorded Time Cellulitis 805443553 Active Not Available [facility] 3 17:52:42 Seizure disorder 615427563 Active Not Available [facility] 3 17:52:42 Backache 915697798 Active Not Available [facility] 3 17:52:42 Anxiety state 914653646 Active Not Available [facility] 3 17:52:42 Edema 215640991 Active Not Available [facility] 3 17:52:42 Eruption 138169613 Active Not Available [facility] 3 17:52:42 Low back pain 930959999 Active Not Available [facility] 3 17:52:42 Chronic sciatica 276005209 Active Not Available [facility] 3 17:52:42 Knee pain Active Not Available [facility] 3 17:52:42 Contact dermatitis 98748405 Active Not Available [facility] 3 17:52:42 Lymphedema of lower extremity 337465756 Active Not Available [facility] 3 17:52:42 Anxiety 10825515 Active Not Available [facility] 3 17:52:42 Pain of hip region 89456711 Active Not Available [facility] 3 17:52:42 Essential hypertensi on 35440525 Active Not Available [facility] 3 17:52:42 Costal chondritis 95814627 Active Not Available [facility] 3 17:52:42 Sleep apnea 93648624 Active Not Available [facility] 3 17:52:42 Epilepsy 98291370 Active SUDEEP Watson [address] [place] [address], [address] , [facility] 4 21:02:04 Mixed anxiety and depressive disorder 237464150 Active 2022 Not Available [facility] 3 17:52:42 Chronic low back pain 683674021 Active 2022 Not Available [facility] 3 17:52:42 Impaired fasting glycemia 503116872 Active 2022 Not Available [facility] 3 17:52:42 Maturity onset diabetes of the young, type 2 149069400 Active 2022 Not Available [facility] 3 17:52:42 Acute bronchitis with bronchospa sm 90772880 Active 2022 Not Available [facility] 3 17:52:42 Type 2 diabetes mellitus without complicati on 458408752 Active 2022 Not Available [facility] 3 17:52:42 Infestatio n by [employer]arc[employer] scabiei micah hominis 280762702 Active 2022 Not Available [facility] 3 17:52:42 Morbid obesity 906691008 Active 2022 Not Available [facility] 3 17:52:42 Impaired glucose tolerance 9818855 Active 2022 Not Available [facility] 3 17:52:42 Pain in bilateral feet 3249426577521 9102 Active 2022 Not Available [facility] 3 17:52:42 Neuropathy 205883670 Active 2022 Not Available [facility] 3 17:52:42 Chronic sciatica 628309241 Active 2023 SUDEEP Watson [address], [place], [address] , [facility] [employer] [facility] 4 11:53:19 Fracture of tooth 51576658 Active 2023 SUDEEP Watson [address], [place], [address] , [facility] [employer] [facility] [employer] [facility] 4 11:55:09 Dysuria 35713916 Active 2023 SUDEEP Watson [address], [place], [address] , [facility] [employer] [facility] [employer] [facility] 4 11:48:35 Pain of left knee joint 6090919541093 07 Active 2023 FREDRICK Barney, [place] - [facility] [place] [facility] 4 14:06:08 Bilateral osteoarthr itis of knees 2214342702927 07 Active 2023 SUDEEP Hollis [address], [address], [place], [address] , [place] [facility] 4 15:35:28 Adult health examinatio n Active 2023 SUDEEP Watson [address], [address], [place], [address] , [place] [facility] 4 11:23:02 Hypokalemi a 01174893 Active 2023 SUDEEP Watson [address], [address], [place], [address] , [facility] [place] [facility] 4 15:08:03 Pain of left shoulder joint 3284714221215 9109 Active 2023 FREDRICK Barney, [place] [facility] [place] [facility] 4 09:04:23 Closed fracture of greater tuberosity of proximal left humerus 3292553686714 9100 Active 2023 SUDEEP Hollis [address], [place], [address] , [facility] 4 09:28:35 Contusion of right knee 3626022341441 9104 Active 2023 SUDEEP Hollis [address], [place], [address] , [facility] - [facility] 4 09:28:49 Closed fracture of anatomical neck of proximal left humerus 8501730120132 9108 Active 2023 SUDEEP Hollis [address], [place], [address] , [facility] - [facility] 4 11:51:03 Migraine 78430750 Active 2023 SUDEEP Watson [address], [place], [address] , [facility] - [facility] 4 11:37:44 Nausea 065878915 Active 2024 SUDEEP Watson [address], [place], [address] , [facility] 5 15:29:06 Gastritis 3992098 Active 2024 SUDEEP Watson [address], [place], [address] , [place] [facility] 5 15:29:28 Allergic reaction 146928541 Active 2024 SUDEEP Watson [address], [place], [address] , [place] [facility] 5 11:43:19 Screening for malignant neoplasm of colon Active 2024 SUDEEP Watson [address], [place], [address] , [facility] 5 11:46:43 Hyperlipid emia 62589630 Active 2024 SUDEEP Watson [address], [place], [address] , [facility] - [facility] 5 11:53:12 Vertigo 075025457 Active 2024 SUDEEP Watson [address], [place], [address] , [facility] [place] [facility] 5 10:35:47 Ankle pain 215301999 Active 2024 Nataliya Contreras null, [place] [facility] 5 11:11:24 Ankle pain 243447206 Active 2024 JR Contreras null, [place] [facility] [place] [facility] 5 09:08:19 Primary osteoarthr itis of ankle 213124143 Active 2024 SUDEEP Hollis [address], [place], [address] , [place] [facility] [place] [facility] 5 11:29:24 Acute ankle pain 0712469577098 5 Active 2024 SUDEEP Hollis [address], [place], [address] , [facility] 5 11:29:49 Problem Notes None recorded. Procedures Surgical History Date Name Laterality Status Provider Name and Address Organization Details Recorded Time 3 Nebulizer Treatment completed Jarek Paniagua MD [address], [place], [address], [facility] [employer] [facility] 01/07/2023 06:25:57 procedure on lower leg completed Terrie Lebron [facility] [employer] [facility] 01/08/2024 14:05:02 Hernia Repair completed Terrie Vi [facility] [employer] [facility] 01/08/2024 14:05:18 Imaging Results None recorded. Procedure Notes None recorded. Medical Equipment None Reported. Allergies Allergen ID Allergen Name Allergen Category Reaction Reaction Severity Criticality Documentation Date Start Date Code Code System Note Provider Name and Address Organization Details Recorded Time 10367 Product containin g penicilli n (product) medicatio n hives Not available Not available 11/26/2022 58847 8001 SNOMED Not Available [facility] 3 06:51:21 Medications Name Sig Start Date [...] mg by injectio n route. 2024 active [facility]: [id number] -20 Not Available Not Available Not Available [employer] [...] Updated DateTime 07/18/2025 177.8 cm 41.6 kg/m2 318319.79 g Terrie Lebron [facility]NA [employer] 07/18/2025 10:50:36 Social History Question Answer Notes LastModified by Organizat ion Details LastModified Time Tobacco Smoking Status Current Every Day Smoker FREDRICK Barney [employer] 01/08/2024 14:04:42 What Was The Date Of [...] Not available 2023 14:04:10 Father Alzheimer's disease [email or web address] Not available 06/29 10:48:13 Sister Heart disease Not available 2024 10:19:56 Sister Cerebrovascu lar accident Not available 09/2024 10:20:12 Sister Kidney disease Not available 2024 10:20:25 Medical History Condition Response ARTHRITIS Y DIABETES, TYPE Y Gynecological HistoryNo gynecological history recorded. Obstetrics History GPAL:G 0 P 0 0 0 0 Immunizations Vaccine Type Date Status Note Provider Nam e and Address Organization Details Recorded Time Influenza, split virus, trivalent, PF 07/08/2024 completed SUDEEP Watson [address] [place] [address], [place], [address], [facility] [employer] [facility] 08/01/2024 09:50:27 Past Encounters Encounter ID Performer Location Encounter Start Date Encounter Closed Date Diagnosis/Indication Diagnosis SNOMED-CT Code Diagnosis ICD10 Code Diagnosis IMO Codes Diagnosis Note [id number] Juanito Osei MD [facility] [place] [address] [facility] [place] [address] 07/18/2025 10:43:31 07/18/2025 13:05:12 Pain of left knee joint 1202391827 14010 M25.562 Bilateral osteoarthritis of knees 7415659992 43375 M17.0 Ankle pain 627471457 M25 .571 M25.572 17622465 Primary osteoarthritis of ankle 087999715 M19.071 M19.072 61039727 Acute ankle pain 0818335 011 9105 M25.572 [id number] Health Concerns Section Related Observation LastModified by Organization Detai ls LastModified Time None Recorded Concern Status LastModified by Organization Details LastModified Time None Recorded Payers Encounter Date Sequence Insurance Name Policy Number Policy Herron Covered Member ID Herron Member ID Guarantor Name 07/18/2025 1 [employer] [id number] Delmar Wallace [id number] Kyung Wallace Notes Date Note Type Note Provider Name and Address Organization Details Recorded Time 07/18/2025 text/html The patient returns with left [...] x-rays of each today. SUDEEP Hollis [address] [facility], [facility] [address], [place], [address], [facility] [place] [facility] 07/18/2025 11:40:07 OBGyn Episode No OBEpisode recorded.
[2025-08-21 08:01] VITALS: BP 131/74; PULSE 85; RESP 18; TEMP 36.7; O2SAT 98
[2025-08-21] MEDS: LACTATED RINGERS 1,000 ML 150 ML IV CONT (08:10)
--- NOTE | 2025-08-21 08:33 | P.PNAN_ITS ---
Anes - Initial Pre Proc Eval Procedure: Operation Date: 08/21/25 09:00 Proposed Procedures p Diagnostic Colonoscopy - Harman Garcias MD Date/Time: 08/21/25 08:33 Surgeon: Harman Garcias MD Pre Op Diagnosis: Diarrhea, unspecified Patient Data Age: 59 Gender: F Height: 1.78 m Weight: 120.7 kg Last Vital Signs Temp 98.0 F 08/21/25 08:01 Pulse 85 08/21/25 08:01 Resp 18 08/21/25 08:01 BP 131/74 08/21/25 08:01 Pulse Ox 98 08/21/25 08:01 O2 Del Method Room Air 08/21/25 08:01 Allergies Allergy/AdvReac Type Severity Reaction Status Date / Time Penicillins Allergy Other Verified 08/10/25 13:38 Home Medications ?Medication ?Instructions ?Recorded ?Confirmed ?Type alprazolam 0.25 mg tablet 0.25 mg PO BID PRN Anxiety 0 06/18/22 08/10/25 History atenolol 50 mg tablet 50 mg PO DAILY 06/18/2207/30 History escitalopram oxalate 20 mg tablet 20 mg PO DAILY 06/1808/21/25 History hydrochlorothiazide 25 mg tablet 25 mg PO BID 06/18/22 08/21/25 History trazodone 50 mg tablet 50 mg PO HS 06/18/22 5 History venlafaxine 75 mg capsule,extended 75 mg PO DAILY 05/3008/21/25 History release 24 hr lamotrigine 150 mg tablet 150 mg PO BID 08/10/2508/21 History (Lamictal) semaglutide 2 mg/dose (8 mg/3 mL) 2 mg subcut WEEKLY 1 10/10/24 08/10/25 History subcutaneous pen injector (Ozempic) Laboratory Tests 08/21/25 08:08 POC Capillary Glucose 101 mg/dl (65-105) Patient hx anesthesia problems: none Family hx anesthesia problems: none Results Review: All pre-operative results and documents have been reviewed as part of the pre- operative evaluation. [facility] Past Medical History Medical History Colon polyp Social History Social History Years smoked: 32 Smoking status: Current every day smoker Tobacco type: cigarettes Substance use type: does not use Living arrangements: with family Spiritual care concerns: No Anes - Eval Final PreProcedure Day of Procedure 08/21/25 08:33 Patient weight: obese Lungs: normal air movement Airway: Mallampati scale class II and special considerations (Edentulous. ) Neurological: alert and oriented Last oral intake: >/= 8 hours ASA classification: III Emergent: no Anesthetic plan: proceed Anesthesia type and monitoring: general GIVS and standard monitoring Results Review: All pre-operative results and documents have been reviewed as part of the pre- operative evaluation. DM fsbs 101, off GLP1 for 1 month, smoker, seizures but none for 1 month. Informed Consent: The patient's anesthetic plan and its attendant risks and benefits were discussed with the patient/family/POA. Questions were solicited and answers provided to the satisfaction of the patient/family/POA.
--- NOTE | 2025-08-21 08:40 | PM.HPGS ---
History of Present Illness History of Present Illness Consent: Risks, benefits, and alternatives have been discussed and questions answered. Patient agrees to proceed with procedure. Chief complaint: Diarrhea, unspecified Narrative: Kyung Wallace is a 59 year old female with polyps in 2021 and due to have a colonoscopy but last month also diarrhea and noted undigested residue in stool sometimes. Review of Systems Review of Systems: All systems reviewed & are unremarkable except as noted in HPI and below PMFSH Past Medical History Medical History (Updated 08/21/25 @ 08:41 by Harman Garcias MD) Diarrhea Colon polyp Social History Social History Years smoked: 32 Smoking status: Current every day smoker Tobacco type: cigarettes Substance use type: does not use Living arrangements: with family Spiritual care concerns: No Meds Home Medications and Allergies Home Medications ?Medication ?Instructions ?Recorded ?Confirmed ?Type alprazolam 0.25 mg tablet 0.25 mg PO BID PRN Anxiety 06/18/22 08/10/25 History atenolol 50 mg tablet 50 mg PO DAILY 06/18/22 08/21/25 History escitalopram oxalate 20 mg tablet 20 mg PO DAILY 06/18/22 08/21/25 History hydrochlorothiazide 25 mg tablet 25 mg PO BID 06/18/22 08/21/25 History trazodone 50 mg tablet 50 mg PO HS 06/18/22 08/21/25 History venlafaxine 75 mg capsule,extended 75 mg PO DAILY 06/18/22 08/21/25 History release 24 hr lamotrigine 150 mg tablet 150 mg PO BID 08/10/25 08/21/25 History (Lamictal) semaglutide 2 mg/dose (8 mg/3 mL) 2 mg subcut WEEKLY 08/10/25 08/10/25 History subcutaneous pen injector (Ozempic) Allergies Allergy/AdvReac Type Severity Reaction Status Date / Time Penicillins Allergy Other Verified 08/10/25 13:38 Vital Signs Vital Signs - 24 hr 08/21/25 08:01 Temperature 98.0 F Pulse Rate 85 Respiratory Rate 18 Blood Pressure 131/74 Pulse Oximetry 98 Oxygen Delivery Room Air Exam Const: General: comfortable and no acute distress HENMT: Face/Nose/Sinus: Normal nares present Eyes: General: appearance normal, both eyes and all related structures Resp: Auscultation: clear to auscultation bilaterally Cardio: Rate: regular rate Rhythm: regular rhythm GI: Inspection: non-distended GI Palp: Yes Soft to palpation Skin: General skin exam: normal color Extrem: General: normal to inspection Psych: Mental Status: mental status grossly normal Assessment and Plan Assessment and plan (1) Colon polyp: Code(s): K63.5 - Polyp of colon Status: Acute Assessment and Plan: colonoscopy (2) Diarrhea: Code(s): R19.7 - Diarrhea, unspecified Status: Acute Assessment and Plan: will do random colon bx consider also work up for celiac, epi, etc
--- NOTE | 2025-08-21 08:51 | S_PTH ---
PATIENT: Kyung Wallace LOC: [facility]#:[id number] AGE/SX: 59/F ROOM: RE08/21/[address]: Harman Garcias MD : 1965 BED: DIS: 08/21/2025 SPEC #: [id number] RECD: 08/21/25 09:46 STATUS: SUNIL RECalista #: [id number] PAT: 08/21/25 08:[address]: Harman Garcias DEPT: [facility] Surgical RECD BY: Eloina Sparks ENTERED: 08/21/25 09:47 SP TYPE: Surgical OTHR DR: Jani GriffithsMD Tissues: A - Colon Biopsy B - Colon Polypectomy Procedures: Hematoxylin and Eosin Stain Gross and Microscopic Level 4
[2025-08-21 08:56] VITALS: BP 85/56; PULSE 79; RESP 23; O2SAT 96
[2025-08-21 09:06] VITALS: BP 95/64; PULSE 75; RESP 18; O2SAT 99
[2025-08-21 09:16] VITALS: BP 105/64; PULSE 72; RESP 17; O2SAT 98
== END 2025-08-21 09:24 | disposition home or self-care (01) ==
PROVIDERS: PCP Internal Medicine; Referring Provider Internal Medicine; Visit Provider Internal Medicine Gastroenterology
PROC: 0DJD8ZZ Inspection of Lower Intestinal Tract, Via Natural or Artificial Opening Endoscopic (ICD-10-PCS; CPT 45378; principal; 2025-08-21 09:00)
DX: K64.8 Other hemorrhoids (principal); K63.5 Polyp of colon; K57.30 Diverticulosis of large intestine without perforation or abscess without bleeding; E11.9 Type 2 diabetes mellitus without complications; F17.210 Nicotine dependence, cigarettes, uncomplicated; E66.9 Obesity, unspecified; Z68.38 Body mass index [BMI] 38.0-38.9, adult; Z79.85 Long-term (current) use of injectable non-insulin antidiabetic drugs
CPT/HCPCS: 45380; 45385; 82948; 88305; J2704; J7120